=== PATIENT | female | born 1995 | race African-American/Black ===

== ENCOUNTER 2022-09-29 13:34 | Day surgery (SDC) | payer BC ==
[~2022-09-29] VITALS: Ht 154.9 cm; Wt 128.5 kg
[2022-09-29 15:14] VITALS: BP 151/91; PULSE 86; TEMP 97.1
[2022-09-29] MEDS ORDERED: TOPROL XL 25MG25 MG PO (15:28)
[2022-09-29 17:48] VITALS: BP 123/76; PULSE 80; TEMP 97.1
[2022-09-29 18:03] VITALS: BP 124/86; PULSE 80
[2022-09-29 18:18] VITALS: BP 119/81; PULSE 76; TEMP 97.1
--- NOTE | 2022-09-29 18:25 | NUR ---
1748 RETURNS TO ROOM 6 PER CART. AWAKE, ALERT. RESP CLEAR, UNLABORED. HOB ELEVATED 60 DEGREES. VITAL SIGNS OBTAINED. DENIES PAIN OR URINARY URGENCY. CALL LIGHT AT SIDE. MOTHER IN ROOM. 1800 TOLERATES PO APPLE JUICE WITHOUT NAUSEA. 181 DISCHARGE INSTRUCTIONS REVIEWED. PATIENT VERBALIZES UNDERSTANDING. COPY PROVIDED IN DISCHARGE FOLDER. 181 SITS ON EDGE OF BED. DRESSES SELF, THEN AMBULATES TO BATHROOM. PATIENT REPORTS VOIDED WITHOUT DIFFICULTY, LIGHT PINK URINE
== END 2022-09-29 18:28 | disposition home or self-care (01) ==
LOC: SDCO 13:34
DX: N20.1 Calculus of ureter (principal); F17.210 Nicotine dependence, cigarettes, uncomplicated; E66.9 Obesity, unspecified; Z68.43 Body mass index [BMI] 50.0-59.9, adult
CPT/HCPCS: C1769; J0690; J1100; J1885; J2405; J2704; J3010; J7120; Q9967